=== PATIENT | male | born 1935 | race Hispanic/Latino ===

== ENCOUNTER 2017-10-17 08:04 | Day surgery (SDC) | payer MEDICARE, BC ==
[2017-04-16 10:32] VITALS: BMI 32.4
--- NOTE | 2017-10-17 09:42 | CP.SDSHP ---
Same Day Surgery H & P - History Proposed Procedure: egd Pre-Op Diagnosis: dysphagia - Previous Medical/Surgical History Cardiac: Hypertension - Allergies Allergies: Allergies lopez Allergy (Verified 10/17/17 08:29) RASH peach Allergy (Verified 10/17/17 08:29) RASH walnut Allergy (Verified 10/17/17 08:29) RASH - Physical Exam Vital Signs: Vital Signs 10/17/17 08:15 Temperature 98.2 F Pulse Rate 64 Respiratory 19 Rate Blood Pressure 151/69 H O2 Sat by Pulse 97 Oximetry Mental Status: Alert & Oriented x3 Neuro: WNL Heart: WNL Lungs: WNL GI: WNL - {Optional Preform as Required} Abdomen: WNL - Impression Impression: dysphagia, reflux Pt. Evaluated Today:Candidate for Anesthesia & Procedure: Yes - Date & Time Date: 10/17/17 Time: 09:42 Short Stay Discharge - Short Stay Discharge Admitting Diagnosis/Reason for Visit: ESOPHAGEAL REFLUX Disposition: HOME/ ROUTINE
[2017-10-17] MEDS ORDERED: Propofol 10 mg/ml Inj (20 ML) ONE (09:53)
[2017-10-17] MEDS ORDERED: Lidocaine Hydrochloride 5 ML INJ ONE (09:57)
[2017-10-17 10:38] VITALS: TEMP 97.5
[2017-10-17 10:40] VITALS: RESP 12
[2017-10-17 11:08] VITALS: BP 142/72; PULSE 55; O2SAT 98
== END 2017-10-17 11:06 | disposition home or self-care (01) ==
LOC: C.ENDO 08:04
PROVIDERS: ATTEND Internal Medicine Gastroenterology
DX: K21.0 Gastro-esophageal reflux disease with esophagitis (principal); K29.50 Unspecified chronic gastritis without bleeding; K44.9 Diaphragmatic hernia without obstruction or gangrene
CPT/HCPCS: 43239; 88305; J2704